=== PATIENT | female | born 1985 | race Hispanic/Latino ===

== ENCOUNTER 2021-01-27 12:28 | Emergency (ER) | payer OTHER ==
[2021-01-27 13:41] LABS: Absolute Lymphocytes (CBC) 1.9 K/uL (0.7-4.9); Basophils % 0.9 % (0-1.3); Hematocrit 41.9 % (36.0-45.0); Lymphocytes % 21.3 % (15.3-44.8); MPV 6.5 fL (7.6-11.3); RBC Red Blood Cell Count 4.69 M/uL (3.86-4.86)
[2021-01-27 13:42] LABS: Urine Blood 3+ (Negative); Urine Glucose Negative (Negative); Urine Protein 2+ (Negative); Urine Specific Gravity 1.025 (1.005-1.030); Urine pH 6.5 (5.0-7.0)
[2021-01-27 13:58] LABS: ALT/SGPT 24 U/L (12-78); AST/SGOT 14 U/L (15-37); Albumin 4.3 g/dL (3.4-5.0); Alkaline Phosphatase 73 U/L (45-117); BUN Blood Urea Nitrogen 10 mg/dL (7-18); Bicarbonate 25 mmol/L (21-32); Bilirubin Direct 0.1 mg/dL (0-0.2); Bilirubin Total 0.5 mg/dL (0.2-1.0); Glucose Level 92 mg/dL (74-106); Lipase 74 U/L (73-393); Potassium 3.4 mmol/L (3.5-5.1); Protein, Total 7.5 g/dL (6.4-8.2); Sodium Level 141 mmol/L (136-145)
[2021-01-27 14:03] LABS: Urine Specific Gravity/Preg 1.025 (1.005-1.030)
--- NOTE | 2021-01-27 16:17 | RAD REPORT ---
EXAM DESCRIPTION: US - Transvaginal Study Probe - 01/27/2021 4:09 pm CLINICAL HISTORY: pelvic pain Pelvic pain. COMPARISON: No comparisons FINDINGS: The uterus is normal in size, shape and echotexture. The uterus measures 8.9 cm An IUD is present. Left adnexal cyst measuring 3 cm is noted. This is almost certainly benign and related to a physiolog ic etiology. Bilateral ovarian blood flow is present. Normal Doppler blood flow was demonstrated to both ovaries. No significant pelvic ascites. IMPRESSION: IUD in situ. Bilateral ovarian blood flow is present.
--- NOTE | 2021-01-27 16:48 | EDPHYS ---
Physician Documentation [facility] Name: Yael Todd Age: 35 yrs Sex: Female : 1985 Arrival Date: 01/27/2021 Time: 12:32 Bed 16 Private MD: ED Physician Miguel Mari HPI: 01/27 16:44 This 35 yrs old Female presents to ER via Ambulatory with complaints of jmm Abdominal Cramping, Headache, Vaginal Bleeding. 16:44 The patient presents to the emergency department with vaginal bleeding. This is a jmm 35-year-old female with no chronic medical conditions presents emerged department with complaints of pelvic pain and an episode of heavy bleeding with large clots this past Monday. Patient states she has had pelvic pain since. Denies fever or vomiting.. Historical: - Allergies: 12:39 No Known Allergies; ll1 - PMHx: 12:39 low BP; ll1 - PSHx: 12:39 None; ll1 - Immunization history:: Client reports receiving the 2nd dose of the Covid vaccine. - Social history:: Smoking status: Patient denies any tobacco usage or history of. ROS: 16:44 Constitutional: Negative for fever, chills, and weight loss, Cardiovascular: Negative jmm for chest pain, palpitations, and edema, Respiratory: Negative for shortness of breath, cough, wheezing, and pleuritic chest pain. 16:44 : Positive for pelvic pain. 16:44 All other systems are negative. Exam: 16:44 Constitutional: This is a well developed, well nourished patient who is awake, alert, jmm and in no acute distress. Head/Face: atraumatic. Eyes: EOMI, no conjunctival erythema appreciated ENT: Moist Mucus Membranes Neck: Trachea midline, Supple Chest/axilla: Normal chest wall appearance and motion. Cardiovascular: Regular rate and rhythm. No edema appreciated Respiratory: Normal respirations, no respiratory distress appreciated Abdomen/GI: Non distended, soft Back: Normal ROM Skin: General appearance color normal MS/ Extremity: Moves all extremities, no obvious deformities appreciated, no edema noted to the lower extremities Neuro: Awake and alert, normal gait Psych: Behavior is normal, Mood is normal, Patient is cooperative and pleasant Vital Signs: 12:37 BP 145 / 90; Pulse 85; Resp 17; Temp 97.5; Pulse Ox 100% ; Weight 72.57 kg; Height 4 ll1 ft. 11 in. (149.86 cm); Pain 8/10; 16:44 BP 115 / 92; Pulse 79; Resp 17; Temp 97.9; Pulse Ox 98% on R/A; jt3 12:37 Body Mass Index 32.32 (72.57 kg, 149.86 cm) ll1 MDM: 13:03 Patient medically screened. [facility] 16:44 Data reviewed: vital signs, nurses notes. Counseling: I had a detailed discussion with cali the patient and/or guardian regarding: the historical points, exam findings, and any diagnostic results supporting the discharge/admit diagnosis, lab results, radiology results, the need for outpatient follow up, to return to the emergency department if symptoms worsen or persist or if there are any questions or concerns that arise at home. ED course: Patient is alert on nontoxic in appearance in the ED. Mirena implant in place. Patient's blood work otherwise normal. Will treat for UTI and advised to follow-up PCP. Patient does have a follow-up with BETTING CLERK scheduled for next week. Patient is otherwise given strict return precautions. Patient understood and agrees plan of care.. 01/27 13:05 Order name: Basic Metabolic Panel; Complete Time: 14:11 [facility] 01/27 13:05 Order name: CBC with Diff; Complete Time: 14:11 [facility] 01/27 13:05 Order name: Hepatic Function; Complete Time: 14:11 [facility] 01/27 13:05 Order name: Lipase; Complete Time: 14:11 [facility] 01/27 13:42 Order name: Urine Dipstick-Ancillary; Complete Time: 14:11 [facility] 01/27 13:50 Order name: Urine --Ancillary (enter results); Complete Time: 14:11 01/27 13:05 Order name: IV Saline Lock; Complete Time: 13:35 [facility] 01/27 13:05 Order name: Labs collected and sent; Complete Time: 13:35 [facility] 01/27 13:05 Order name: Urine Dipstick-Ancillary (obtain specimen); Complete Time: 14:41 [facility] 01/27 13:05 Order name: Urine Test (obtain specimen); Complete Time: 14:41 [facility] 01/27 16:09 Order name: Transvaginal Study Probe; Complete Time: 16:25 EDMS Administered Medications: No medications were administered Disposition: 18:10 Co-signature as Attending Physician, Miguel Mari MD I agree with the assessment and rn plan of care. Attestation: The patient's history, exam findings, diagnostics, and a summary of any interventions or procedures was reviewed in detail with Justin UREÑA. Disposition Summary: 01/27/21 16:48 Discharge Ordered Location: Home [facility] Condition: Stable [facility] Diagnosis - Pelvic and perineal pain jmm - UTI/ Urinary tract infection, site not specified [facility] Followup: [facility] - With: Private Physician - When: 2 - 3 days - Reason: Recheck today's complaints, Continuance of care, Re-evaluation by your physician Discharge Instructions: - Discharge Summary Sheet jm - Pelvic Pain, Female jmm - Urinary Tract Infection, Adult [facility] Forms: - Medication Reconciliation Form [facility] - Thank You Letter [facility] - Antibiotic Education [facility] - Prescription Opioid Use [facility] - Work release form jt3 Prescriptions: - Cephalexin 500 mg Oral Capsule - take 1 capsule by ORAL route every 8 hours for 10 days; 30 capsule; Refills: 0, jm Product Selection Permitted - Ultracet 37.5-325 mg Oral Tablet - take 1 tablet by ORAL route every 6 hours - for up to 5 days; do not exceed 8 jmm tablets per day.; 12 tablet; Refills: 0, Product Selection Permitted Signatures: Dispatcher [employer] [facility] Justin Rahman PA PA [facility] Miguel Mari MD MD rn Lewis, Lynsay, RN RN ll1 Corrections: (The following items were deleted from the chart) 16:09 14:15 Pelvis Complete+[email or web address] ordered. EDWA EDMS
--- NOTE | 2021-01-27 16:48 | ER ---
Nurse's Notes [facility] Name: Yael Todd Age: 35 yrs Sex: Female : 1985 Arrival Date: 01/27/2021 Time: 12:32 Bed 16 Private MD: Diagnosis: Pelvic and perineal pain;UTI/ Urinary tract infection, site not specified Presentation: 01/27 12:37 Chief complaint: Patient states: Had sudden pain Monday night. Had gush of vaginal ll1 bleeding that night. + pelvic pain and cramping since. States she feels anxious, heart racing, GUTIERREZ, dizzy, weak since. Coronavirus screen: Vaccine status: Patient reports being unvaccinated. Client denies travel out of the [place] in the last 14 days. At this time, the client does not indicate any symptoms associated with coronavirus-19. Ebola Screen: Patient denies travel to an Ebola-affected area in the 21 days before illness onset. Initial Sepsis Screen: Does the patient meet any 2 criteria? No. Patient's initial sepsis screen is negative. Does the patient have a suspected source of infection? Yes: Acute abdominal pain. Risk Assessment: Do you want to hurt yourself or someone else? Patient reports no desire to harm self or others. Onset of symptoms was January 25, 2021. 12:37 Method Of Arrival: Ambulatory ll1 12:37 Acuity: BALWINDER 3 ll1 Historical: - Allergies: 12:39 No Known Allergies; ll1 - PMHx: 12:39 low BP; ll1 - PSHx: 12:39 None; ll1 - Immunization history:: Client reports receiving the 2nd dose of the Covid vaccine. - Social history:: Smoking status: Patient denies any tobacco usage or history of. Screenin:53 Abuse screen: Denies threats or abuse. Denies injuries from another. Nutritional jt3 screening: No deficits noted. Tuberculosis screening: No symptoms or risk factors identified. Assessment: 12:53 General: Appears in no apparent distress. Behavior is calm, cooperative. Pain: jt3 Complains of pain in pelvis Pain radiates to pelvis Pain currently is 4 out of 10 on a pain scale. Quality of pain is described as throbbing, "Feels like I just got done working out.". GI: Abdomen is tender to palpation in right lower quadrant. : Reports vaginal bleeding that is bright red, with clots, heavy flow Pt. reports right sided pelvic pain that came on Monday. Pt. reports heavy bleeding on Monday with clots. Since then patient has been spotting. Denies . Endorses having an IUD placed 2 years ago. Mirena was the device. Pt. endorses dizziness intermittently. Alert and oriented x4. Denies SOB. Vital Signs: 12:37 BP 145 / 90; Pulse 85; Resp 17; Temp 97.5; Pulse Ox 100% ; Weight 72.57 kg; Height 4 ll1 ft. 11 in. (149.86 cm); Pain 8/10; 16:44 BP 115 / 92; Pulse 79; Resp 17; Temp 97.9; Pulse Ox 98% on R/A; jt3 12:37 Body Mass Index 32.32 (72.57 kg, 149.86 cm) ll1 ED Course: 12:32 Patient arrived in ED. am2 12:39 Triage completed. ll1 12:40 Arm band placed on. ll1 12:43 Aman Wright RN is Primary Nurse. jt3 12:53 Patient has correct armband on for positive identification. Bed in low position. Call jt3 light in reach. Side rails up X2. 12:53 No provider procedures requiring assistance completed. jt3 12:57 Justin Rahman PA is PHCP. jmm 12:57 Miguel Mari MD is Attending Physician. jmm 13:36 Inserted saline lock: 20 gauge in right antecubital area, using aseptic technique. jt3 16:09 Transvaginal Study Probe In Process Unspecified. EDMS 17:18 IV discontinued, intact, bleeding controlled, No redness/swelling at site. Pressure jt3 dressing applied. Administered Medications: No medications were administered Outcome: 16:48 Discharge ordered by . jmm 17:18 Discharged to home ambulatory. jt3 17:18 Condition: improved 17:18 Discharge instructions given to patient, Instructed on discharge instructions, medication usage, Demonstrated understanding of instructions, medications. 17:52 Patient left the ED. jt3 Signatures: Dispatcher [employer] EDMS Justin Rahman PA PA Neelam Liao am2 Martha Singh RN RN 1 Aman Wright RN RN jt3 Corrections: (The following items were deleted from the chart) 16:09 15:23 In radiology for Pelvis Complete+[email or web address]. EDMS EDMS
[2021-01-27 18:46] VITALS: BP 115/92; TEMP 97.9; O2SAT 98
--- OUTSIDE RECORDS SUMMARY | 2021-02-06 09:44 | XMS REPORT | Continuity of Care Document ---
:1985 Author Organization [facility] t Address [address] [place] [address] Care Team Providers Name Role Phone UNKNOWN Attending Clinician Unavailable Payers Payer Name Policy Type Policy Number Effective Date Expiration Date S [facility] [id number] 2018 00:00:00 Problems This patient has no known problems. Allergies, Adverse Reactions, Alerts Allergy Allergy Status Severity Reaction(s) Onset Inactive Treating Comm ents Source Name Type Date Date Clinician No Known DA Active U 2018-0 [facility] 1-29 Clear s 00:00: Darby [address] [place] [address] No Known DA Active U 2017- [facility] Allergie 2-26 Clear s 00:00: Darby [address] [place] [address] No Known DA Active U 2018-0 [facility] Allergie 4-30 Clear s 00:00: Darby 00 [facility] NO KNOWN Drug Active [facility] ALLERGIE Class [facility] Medications This patient has no known medications. Procedures This patient has no known procedures. Encounters Start End Encounter Admission Attending Care Care Encounter Source Date/Time Date/Time Type Type Clinicians Facility Department ID 2019-12-24 2019-12-24 Outpatient R [facility] [id number] [facility] 17:15[id number]-24 2019-12-24 Outpatient R UNKNOWN, [facility] [id number] Univers 17:15:00 17:15:00 ATTENDING [facility] of [facility] Results Test Description Test Time Test Comments Results Result [facility] e Comments - NM LUNG PERF 2018-11-27 FAX: PARTICULATE 16:38:00 Jenifer Molina NP [phone] [place]: St: REG FAX: Jose Enrique Mtz MD [phone] Name: MARIA ISABEL SERRATO [facility] : 1985 Age/S: 33/F [address] [place] [address] Unit #: [id number] Loc: [place] [address] Phys: Jenifer Molina NP Acct: [id number] Dis Date: Status: REG ER PHONE #: [phone] Exam Date: 11/27/2018 1558 FAX #: [phone] Reason: sob, elevated d dimer, r/o pe EXAMS: CPT CODE: [id number] NM LUNG PERF PARTICULATE 86226 PROCEDURE: NUCLEAR MEDICINE PERFUSION SCAN INDICATION: Shortness of breath. Elevated d-dimer. 33-year-old female 21 weeks . COMPARISON: Current CXR TECHNIQUE: Perfusion only scan performed by protocol in this patient. 3 mCi Tc 99m MAA administered intravenously right antecubital for perfusion study. FINDINGS: PERFUSION: Homogeneous and symmetric. No segmental or subsegmental perfusion defects. IMPRESSION: Normal perfusion. SL: JOHN at 7461 Reported and signed by: Jasper Alexis M.D. CC: Jenifer Molina NP; Jose Enrique Torrez MD Technologist: Billie Garcia, ARRT (N)(CT); ... Trnscrd Date/Time/By: 11/27/2018 (9458) : By: OdellKWL Orig Print D/T: S: 11/27/2018 (3697) PAGE 1 Signed Report - US LTD 2018-11-27 Name: MARIA ISABEL SERRATO 16:36:00 [facility] : 1985 Age/S: 33 / F [address] [place] [address] Unit #: [id number] Loc: [place] [address] Phys: eJnifer Molina NP Acct: [id number] Dis Date: Status: REG ER PHONE #: [phone] Exam Date: 11/27/2018 1618 FAX #: [phone] Reason: sob, hasnt felt baby move EXAMS: CPT CODE: [id number] US LTD [address] EXAM: US PELVIS TRANSABDOMINAL, OB limited DATE: 11/27/2018 1:54 PM INDICATION: sob, hasnt felt baby move : 1985; Age: 33 years y/o Female COMPARISON: Ultrasound April 24, 2018 TECHNIQUE: Multiplanar grayscale and color Doppler ultrasound of the pelvis were obtained transabdominally. FINDINGS: Single intrauterine gestation in breech position with heart rate of 129 bpm. Gestational age by LMP is 21 weeks and 1 day. Cervical length measures 3.3 cm. Placenta is posterior and normal. Heterogeneous focus is seen in the anterior uterus measuring 4 x 3.4 x 4.8 cm. IMPRESSION: 1. Single live intrauterine . 2. Heterogeneous focus is seen in the anterior uterus measuring 4 x 3.4 x 4.8 cm. No evidence of uterine fibroid was seen on prior examination. This focus likely represent myometrial contraction. Short interval ultrasound follow-up would be helpful. SL: [id number] at 1636 Reported and signed by: Gretta Dsouza D.O. CC: Jenifer Molina NP; Jose Enrique Torrez MD Technologist: Joanie Carpio Trnscb Date/Time: 11/27/2018 (1636) [email or web address] Orig Print D/T: S: 11/27/2018 (1073) Probe: PAGE 1 Signed Report UA RFLX MICR CULT IF INDICATED 2018-11-27 15:27:00 Test Item Value Reference Range Interpretation Comme nts UA COLOR (test code = COLU) YELLOW YEL/STRAW UA APPEARANCE (test code = APPU) CLEAR CLEAR UA GLUCOSE DIPSTICK (test code = DGLUU) NEGATIVE NEGATIVE UA BILIRUBIN DIPSTICK (test code = BILU) NEGATIVE NEGATIVE UA KETONE DIPSTICK (test code = KETU) NEGATIVE NEGATIVE UA SPECIFIC GRAVITY (test code = SGU) 1.015 1.005-1.030 N UA BLOOD DIPSTICK (test code = MARY ELLEN) 2+ NEGATIVE A UA PH DIPSTICK (test code = KAROLINE) 6.0 5.0-7.0 N UA PROTEIN DIPSTICK (test code = PROU) NEGATIVE NEGATIVE UA UROBILINIOGEN DIPSTICK (test code = URO) 0.2 mg/dL 0.2-1.0 UA NITRITE DIPSTICK (test code = CHICHO) NEGATIVE NEGATIVE UA LEUKOCYTE ESTERASE DIPSTICK (test code = LEUU) TRACE NEGA TIVE A UA WBC (test code = WBCU) 4-9 WBC/HPF 0-3 A UA RBC (test code = RBCU) 0-3 RBC/HPF 0-3 UA WBC NO REFLEX (test code = WBCUCL) 4-9 WBC/HPF 0-3 A UA BACTERIA (test code = BACU) TRACE /HPF NONE SEEN UA SQUAMOUS CELLS (test code = SQU) 0-5 /HPF NONE SEEN UA MUCUS (test code = MUCU) 1+ /LPF NONE SEEN Indication for culture: Dysuria/FrequencySpecimen Description: CLEAN CATCH BASIC METABOLIC [id number] 14:33:00 Test Item Value Reference Range Interpretation Comments SODIUM (test code = NA) 139 mEq/L 134-147 N POTASSIUM (test code = 3.5 mEq/L 3.4-5.0 N K) CHLORIDE (test code = 110 mEq/L 100-108 H CL) CARBON DIOXIDE (test 23 mEq/L 21-33 N code = CO2) ANION GAP (test code = 10 0-20 N GAP) GLUCOSE (test code = 117 mg/dL 70-110 H GLU) BLOOD UREA NITROGEN 5 mg/dL 7-18 L (test code = BUN) GLOMERULAR FILTRATION 143.0 105-110 H Units of measure = RATE (test code = GFR) ml/mi n/1.73 m2 CREATININE (test code = 0.5 mg/dL 0.6-1.3 L CREAT) CALCIUM (test code = 8.4 mg/dL 8.0-10.5 N CA) [id number] 14:31:00 Test Item Value Reference Range Interpretation Comments D-DIMER (test 962 ng/mlFEU <=500 HH THROMBOSIS AN D/OR PULMONARY code = EMBOLISM AND TH E CLINICAL DDIMER) CUT- OFF VALUE FOR EXCLUSION (500 ng/mL FEU) OF THESE CONDITIONSIS VA LIDATED BY THE MANUFACTURE R OF THE METHOD. A NEGAT ALMA ROSA D-DIMER RESULT WHEN COM BINED WITH A CLINICALASSESSM ENT OF LOW PRETEST PROBABI LITY HAS BEEN SHOWN TO HAVEA HIGH NEGATIVE PREDICTIVE VALU E OF DVT OR PE. D-DIMER MATILDE UES >500 ng/mL FEU ARE N OT DIAGNOSTIC FOR DVT, PEor D IC WITHOUT OTHER CONFIRMAT ORY TESTS AND APPROPRIATECLIN ICAL EUALUATIONS. BASIC METABOLIC [id number] 14:29:00 Test Item Value Reference Range Interpretation Comments SODIUM (test code = NA) 139 mEq/L 134-147 N POTASSIUM (test code = K) 3.5 mEq/L 3.4-5.0 N CHLORIDE (test code = CL) 110 mEq/L 100-108 H CARBON DIOXIDE (test code = CO2) 23 mEq/L 21-33 N ANION GAP (test code = GAP) 10 0-20 N GLUCOSE (test code = GLU) 117 mg/dL 70-110 H BLOOD UREA NITROGEN (test code = 5 mg/dL 7-18 L BUN) GLOMERULAR FILTRATION RATE (test 105-110 code = GFR) CREATININE (test code = CREAT) mg/dL 0.6-1.3 CALCIUM (test code = CA) 8.4 mg/dL 8.0-10.5 N CBC W/AUTO [id number] 14:20:00 Test Item Value Reference Range Interpretation Comments WHITE BLOOD CELL (test code = 10.64 x10 3/uL 4.5-11.0 N WBC) RED BLOOD CELL (test code = 4.00 x10 6/uL 3.54-5.02 N RBC) HEMOGLOBIN (test code = HGB) 11.8 g/dL 11.0-15.0 N HEMATOCRIT (test code = HCT) 35.4 % 33.0-45.0 N MEAN CELL VOLUME (test code = 88.5 fL 81.0-99.0 N MCV) MEAN CELL HGB (test code = 29.5 pg 27.0-33.0 N MCH) MEAN CELL HGB CONCETRATION 33.3 g/dL 33.0-37.0 N (test code = MCHC) RED CELL DISTRIBUTION WIDTH CV 13.5 % 11.5-14.5 N (test code = RDW) RED CELL DISTRIBUTION WIDTH SD 44.3 fL 37.0-54.0 N (test code = RDW-SD) PLATELET COUNT (test code = 284 x10 3/uL 150-400 N PLT) MEAN PLATELET VOLUME (test 9.0 fL 7.0-9.0 N code = MPV) NEUTROPHIL % (test code = NT%) 75.8 % 56.0-77.0 N IMMATURE GRANULOCYTE % (test 0.5 % 0.0-2.0 N code = IG%) LYMPHOCYTE % (test code = LY%) 16.4 % 14.0-32.0 N MONOCYTE % (test code = MO%) 5.4 % 4.8-9.0 N EOSINOPHIL % (test code = EO%) 1.6 % 0.3-3.7 N BASOPHIL % (test code = BA%) 0.3 % 0.0-2.0 N NUCLEATED RBC % (test code = 0.0 % 0-0 N NRBC%) NEUTROPHIL # (test code = NT#) 8.07 x10 3/uL 2.0-7.6 H IMMATURE GRANULOCYTE # (test 0.05 x10 3/uL 0.00-0.03 H code = IG#) LYMPHOCYTE # (test code = LY#) 1.75 x10 3/uL 1.0-3.8 N MONOCYTE # (test code = MO#) 0.57 x10 3/uL 0.1-0.8 N EOSINOPHIL # (test code = EO#) 0.17 x10 3/uL 0.0-0.2 N BASOPHIL # (test code = BA#) 0.03 x10 3/uL 0.0-0.2 N NUCLEATED RBC # (test code = 0.00 x10 3/uL 0.0-0.1 N NRBC#) MANUAL DIFF REQUIRED (test NO code = MDIFF) - XR CHEST 2 [id number] 14:18:00 FAX: Jenifer Molina NP [phone] [place]: St: PRE FAX: Jose Enrique Mtz MD [phone] Name: MARIA ISABEL SERRATO [facility] : 1985 Age/S: 33/F [address] [place] [address] Unit #: [id number] Loc: [place] [address] Phys: Jenifer Molina NP Acct: [id number] Dis Date: Status: PRE ER PHONE #: [phone] Exam Date: 11/27/2018 141 FAX #: [phone] Reason: sob EXAMS: CPT CODE: [id number] XR CHEST 2 V 55001 Clinical Chichi cation: Shortness of breath, dizziness. 21 weeks . Comparison: None available. Impression: Chest, 2 views. Lungs are clear. No consolidation, pleural effusion, or pneumothorax. Cardiomediastinal silhouette is unremarkable. SL: [id number] at 1418 Reported and signed by: Matthew Alcantar M.D. CC: Jenifer Molina [employer] ENGINEERING MANAGER; Jose Enrique Torrez MD Technologist: TANMAY Leon) Trnscrd Date/Time/By: 11/27/2018 (1418) : By: [email or web address] Orig Print D/T: S: 11/27/2018 (1421) PAGE 1 Signed Report URINALYSIS [id number] 16:09:00 Test Item Value Reference Range Interpretation Comments UA COLOR (test code = COLU) STRAW YEL/STRAW UA APPEARANCE (test code = CLEAR CLEAR APPU) UA GLUCOSE DIPSTICK (test NEGATIVE NEGATIVE code = DGLUU) UA BILIRUBIN DIPSTICK (test NEGATIVE NEGATIVE code = BILU) UA KETONE DIPSTICK (test NEGATIVE NEGATIVE code = KETU) UA SPECIFIC GRAVITY (test 1.006 1.005-1.030 N code = SGU) UA BLOOD DIPSTICK (test 2+ NEGATIVE A code = MARY ELLEN) UA PH DIPSTICK (test code = 7.0 5.0-7.0 N KAROLINE) UA PROTEIN DIPSTICK (test NEGATIVE NEGATIVE code = PROU) UA UROBILINIOGEN DIPSTICK 0.2 mg/dL 0.2-1.0 (test code = URO) UA NITRITE DIPSTICK (test NEGATIVE NEGATIVE code = CHICHO) UA LEUKOCYTE ESTERASE NEGATIVE NEGATIVE DIPSTICK (test code = LEUU) UA WBC (test code = WBCU) NONE SEEN WBC/HPF 0-3 UA RBC (test code = RBCU) 0-3 RBC/HPF 0-3 UA BACTERIA (test code = TRACE /HPF NONE SEEN BACU) UA SQUAMOUS CELLS (test 0-5 /HPF NONE SEEN code = SQU) UA TRANSITIONAL CELLS (test TRACE /HPF NONE SEEN code = TRANU) UA MUCUS (test code = MUCU) TRACE /LPF NONE SEEN COMMENTS: Clean CatchHCG [id number] 16:09:00 Test Item Value Reference Range Interpretation Comments HCG SERUM (test 4840 0 - 6 code = HCG) NOT > 6 SUG GESTIVE OF EARLY RISES TWO FOLD EVERY 2 DAYS; JULES GGEST RECONFIRMING AF TER 2 DAYS. 150,000-20 0,[address] TRIMESTER 10,000 - 50,000 2ND & 3RD TRIMESTERResult s in wiley-Internati onal Units/mL Is patient ? YHOW MANY WEEKS? 11 WEEKSHCG SERUM [id number] 16:09:00 Test Item Value Reference Range Interpretation Comments HCG SERUM QUAL (test code = SERUM POSITIVE NEGATIVE A HCGQL) Is patient ? YHOW MANY WEEKS? 11 WEEKSPROTHROMBIN [id number] 15:54:00 Test Item Value Reference Range Interpretation Comments PROTHROMBIN TIME 11.9 SECONDS 9.3-12.9 N PATIENT (test code = PTP) INTERNATIONAL NORMAL 1.1 0.8-1.2 N TARGET RATIO (test code = INR BY IN DICATION INR) Indication INR1. Prophyl axis of venous thrombos is 2.0 - 3. 0 (orthopedic sita desmond), Prophylaxis of venous thrombos is (other than hig h-risk surgery), Olivia tment of Deep Vein Thrombosis/Pulm onary Embolism, Preve ntion of systemic emb olism - Tissue heart va lves, Acute Myocardia l Infarction (to prevent systemic embo lism), Valvular heart disease, Atri al Fibrillation, Bileaflet mecha nical valve in aortic position.2. Mec hanical prosthetic valv es (high risk), 2.5 - 3.5 Presence of Lupus Anticoagu lant or Antiphospholi pid Antibodies, Pre vention of systemic e mbolism - Acute Myocard ial Infarction (t o prevent recurre nt infarct). THROMBOPLASTIN TIME [id number] 15:54:00 Test Item Value Reference Range Interpretation Comments THROMBOPLASTIN TIME 29.7 Seconds 25.0-39.5 N Ther apeutic PARTIAL (test code = Range: 61.8-83.8 PTT) Sec Effective 04/24/2013 HCG [id number] 15:49:00 Test Item Value Reference Range Interpretation Comments HCG SERUM (test code = HCG) Is patient ? YHOW MANY WEEKS? 11 WEEKSHCG SERUM [id number] 15:49:00 Test Item Value Reference Range Interpretation Comments HCG SERUM QUAL (test code = SERUM POSITIVE NEGATIVE A HCGQL) Is patient ? YHOW MANY WEEKS? 11 WEEKSCBC W/AUTO [id number] 15:48:00 Test Item Value Reference Range Interpretation Comments WHITE BLOOD CELL (test code = 9.27 x10 3/uL 4.5-11.0 N WBC) RED BLOOD CELL (test code = 4.70 x10 6/uL 3.54-5.02 N RBC) HEMOGLOBIN (test code = HGB) 13.6 g/dL 11.0-15.0 N HEMATOCRIT (test code = HCT) 42.3 % 33.0-45.0 N MEAN CELL VOLUME (test code = 90.0 fL 81.0-99.0 N MCV) MEAN CELL HGB (test code = MCH) 28.9 pg 27.0-33.0 N MEAN CELL HGB CONCETRATION 32.2 g/dL 33.0-37.0 L (test code = MCHC) RED CELL DISTRIBUTION WIDTH CV 13.2 % 11.5-14.5 N (test code = RDW) RED CELL DISTRIBUTION WIDTH SD 43.9 fL 37.0-54.0 N (test code = RDW-SD) PLATELET COUNT (test code = 318 x10 3/uL 150-400 N PLT) MEAN PLATELET VOLUME (test code 8.4 fL 7.0-9.0 N = MPV) NEUTROPHIL % (test code = NT%) 65.8 % 56.0-77.0 N IMMATURE GRANULOCYTE % (test 0.2 % 0.0-2.0 N code = IG%) LYMPHOCYTE % (test code = LY%) 27.1 % 14.0-32.0 N MONOCYTE % (test code = MO%) 5.7 % 4.8-9.0 N EOSINOPHIL % (test code = EO%) 0.8 % 0.3-3.7 N BASOPHIL % (test code = BA%) 0.4 % 0.0-2.0 N NUCLEATED RBC % (test code = 0.0 % 0-0 N NRBC%) NEUTROPHIL # (test code = NT#) 6.10 x10 3/uL 2.0-7.6 N IMMATURE GRANULOCYTE # (test 0.02 x10 3/uL 0.00-0.03 N code = IG#) LYMPHOCYTE # (test code = LY#) 2.51 x10 3/uL 1.0-3.8 N MONOCYTE # (test code = MO#) 0.53 x10 3/uL 0.1-0.8 N EOSINOPHIL # (test code = EO#) 0.07 x10 3/uL 0.0-0.2 N BASOPHIL # (test code = BA#) 0.04 x10 3/uL 0.0-0.2 N NUCLEATED RBC # (test code = 0.00 x10 3/uL 0.0-0.1 N NRBC#) MANUAL DIFF REQUIRED (test code NO = MDIFF) - US PREG UT [id number] 15:38:00 Name: SERRATOSRIRAM QUINTANILLAEN [facility] : 1985 Age/S: 32 / F [address] [place] [address] Unit #: [id number] Loc: Jose Alfredo [id number] Phys: EDDOC GENERIC FOR EDM Acct: [id number] Dis Date: Status: REG ER PHONE #: [phone] Exam Date: 04/24/2018 1521 FAX #: [phone] Reason: PELVIC P AIN EXAMS: CPTCODE: [id number] US PREG UT TRANSVAGINAL 87596 1st trimester OB ultrasound HISTORY: Cramping abdominal pain, bleeding, 11 week 6 day by dates. Comparison made to 03/21/18. TECHNIQUE: Grayscale, color, and Doppler transabdominal and transvaginal imaging of the pelvis was performed with standard technique. Transvaginal ultrasound was obtained for further evaluation of the gestational sac. FINDINGS: Transabdominal images show uterine length of 11.8 cm. There is an intrauterine gestational sac. Transvaginal images show an anteverted uterus. Transvaginal images confirm an intrauterine gestation. The pole measures approximately 1.89 cm in length, corresponding with an 8 week 3 day gestational age sonographically. Subchorionic blood products are seen caudal to the gestational sac, measuring up to 2 cm in m aximum diameter. Transabdominal and transvaginal images show no heart tones. Thefetal heart rate was 135 bpm on the 03/21/18 comparison ultrasound. The left ovary measures 3.2 x 1.9 x 2.4 cm, the right ovary measures 1.4 x 2.7 x 2.1 cm. There is a 1.7 cm left corpus luteum cyst. There is documented arterial flow to the right and left ovary by Doppler. IMPRESSION: 1. Intrauterine gestation, estimated at8 weeks 3 days gestational age by crown-rump length measurement. No heart tones demonstrated on transabdominal or transvaginal images, consistent with intrauterine demise. 2. Subchorionic blood products along the caudal aspect of the gestational sac. 3. 17 mm left corpus luteum cyst, no significant free pelvic fluid. SL:01 PAGE 1 Signed Report (CONTINUED) Name: MARIA ISABEL SERRATO [facility] : 1985 Age/S:32 / F [address] [place] [address] Unit #: [id number] Loc: [place] [address] Phys: EDDOC GENERIC FOR EDM Acct: [id number] Dis Date: Status: REG ER PHONE #: [phone] Exam Date: 04/24/2018 1521 FAX #: [phone] Reason: PELVICPAIN EXAMS: CPT CODE: [id number] US PREG UT TRANSVAGINAL 98128 <Continued> at 1538 Reported and signed by: Dmitriy Alejo M.D. CC: Oliver Barrientos MD Technologist: Bhargavi Mendoza RDMS(Jacy)(BR) Trnscb Date/Time: 04/24/2018 (1538) tBRUNA Orig Print D/T: S: 04/24/2018 (1541) Probe: [id number] PAGE 2 Signed Report- US PREG 1ST [id number] 15:38:00 Name: MARIA ISABEL SERRATO [facility] : 1985 Age/S: 32 / F [address] [place] [address] Unit #: [id number] Loc: [facility] [id number] Phys: Horacio Barragan Acct: [id number] Dis Date: Status: REG ER PHONE #: [phone] Exam Date: 04/24/2018 1520 FAX #: [phone] Reason: Pelvic Pain EXAMS: CPTCODE: [id number] US PREG 1ST TRIMTR 74440 1st trimeste r OB ultrasound HISTORY: Cramping abdominal pain, bleeding, 11 week 6 day by dates. Comparison made to 03/21/18. TECHNIQUE: Grayscale, color, and Doppler transabdominal and transvaginal imaging of the pelvis was performed with standard technique. Transvaginal ultrasound was obtained for further evaluation of the gestational sac. FINDINGS: Transabdominal images show uterine length of 11.8 cm. There is an intrauterine gestational sac. Transvaginal images show an anteverted uterus. Transvaginal images confirm an intrauterine gestation. The pole measures appro ximately 1.89 cm in length, corresponding with an 8 week 3 day gestational age sonographically. Subchorionic blood products are seen caudal to the gestational sac, measuring up to 2 cm in maximum diameter. Transabdominal and transvaginal images show no heart tones. Thefetal heart rate was 135 bpm on the 03/21/18 comparison ultrasound. The left ovary measures 3.2 x 1.9 x 2.4 cm, the right ovary measures 1.4 x 2.7 x 2.1 cm. There is a 1.7 cm left corpus luteum cyst. There is documented arterial flow to the right and left ovary by Doppler. IMPRESSION: 1. Intrauterine gestation, estimated at 8 weeks 3 days gestational age by crown-rump length measurement. No heart tones demonstrated on transabdominal or transvaginal images, consistent with intrauterine demise. 2. Subchorionic blood products along the caudal aspect of the gestational sac. 3. 17 mm left corpus luteum cyst, no significant free pelvic fluid. SL:01 PAGE 1 Signed Report (CONTINUED) Name: MARIA ISABEL SERRATO [facility] : 1985 Age/S:32 / F [address] [place] [address] Blvd Unit #: [id number] Loc: [place] [address] Phys: Horacio Barragan Acct: [id number] Dis Date: Status: REG ER PHONE #: [phone] Exam Date: 04/24/2018 1520 FAX #: [phone] Reason: PelvicPain EXAMS: CPT CODE: [id number] US PREG 1ST TRIMTR 30536 <Continued> at 1538 Reported and signed by: Dmitriy Alejo M.D. CC: Oliver Barrientos MD; Horacio UREÑA Technologist: Bhargavi Mendoza RDMS(Jacy)(BR) Trnscb Date/Time: 04/24/2018 (1538) tBRUNA Orig Print D/T: S: 04/24/2018 (1542) Probe: PAGE 2 Signed ReportCHEMISTRY 8 [id number] 15:35:00 Test Item Value Reference Range Interpretation Comments ISTAT-SODIUM (test code = NAP) MMOL/L 134-147 ISTAT-POTASSIUM (test code = KP) MMOL/L 3.4-5.0 ISTAT-CHLORIDE (test code = CLP) MMOL/L 100-108 ISTAT CARBON DIOXIDE (test code = mmol/L 21-33 N ISTAT-CO2) ISTAT CALCIUM IONIZED (test code = MG/DL 1.12-1.32 ISTAT-SHEILA) ISTAT-GLUCOSE (test code = GLUP) MG/DL 70-110 N ISTAT-BUN (test code = BUNP) MG/DL 7-18 N BEDSIDE CREATININE (test code = MG/DL 0.6-1.3 N CREATBED) GLOMERULAR FILTRATION RATE POC 124 ML/MIN (test code = GFRBED) CHEMISTRY 8 [id number] 15:35:00 Test Item Value Reference Range Interpretation Comments ISTAT-SODIUM (test 141 MMOL/L 134-147 N code = NAP) ISTAT-POTASSIUM (test 3.5 MMOL/L 3.4-5.0 N code = KP) ISTAT-CHLORIDE (test 101 MMOL/L 100-108 N Perform ed by code = CLP) certified opera tor at [facility] ISTAT CARBON DIOXIDE 25.0 mmol/L 21-33 N (test code = ISTAT-CO2) ISTAT CALCIUM IONIZED 1.24 MG/DL 1.12-1.32 N (test code = ISTAT-SHEILA) ISTAT-GLUCOSE (test 94 MG/DL 70-110 N code = GLUP) ISTAT-BUN (test code = 11 MG/DL 7-18 N BUNP) BEDSIDE CREATININE 0.6 MG/DL 0.6-1.3 N (test code = CREATBED) GLOMERULAR FILTRATION 124 ML/MIN RATE POC (test code = GFRBED)
== END 2021-01-27 17:52 | disposition home or self-care (01) ==
LOC: ER 12:28
DX: N39.0 Urinary tract infection, site not specified (principal)
CPT/HCPCS: 36415; 76830; 80048; 80076; 81003; 81025; 83690; 85025; 99283